=== PATIENT | male | born 1985 | race Caucasian/White ===

== ENCOUNTER 2017-10-05 18:45 | Emergency (ER) | payer SELFPAY ==
[2017-10-05 19:00] VITALS: BP 137/76; PULSE 105; RESP 18; TEMP 98.7
--- NOTE | 2017-10-05 19:29 | ED ---
ENT HPI - General Chief complaint: Dental/Oral Stated complaint: jaw swelling rt side Time Seen by Provider: 10/05/17 19:13 Source: patient, RN notes reviewed Mode of arrival: ambulatory Limitations: no limitations - History of Present Illness Initial comments: This is a 32-year-old male who presents to emergency department with chief complaint of right cheek swelling. Patient states that he's been experiencing jaw pain for the last 2 weeks. Today his right cheek became swollen. Patient states that he recently lost his insurance and has not seen a dentist recently. He states he has full range of motion of his jaw but that there is pain with eating. Patient states that he has always had dental issues and has had multiple dental abscesses in the past. Patient denies fevers, chills, shortness of breath, chest pain, abdominal pain, nausea or vomiting, diarrhea or constipation, numbness or tingling, headache or visual changes. - Related Data Previous Rx's Medication Instructions Recorded Amoxicillin/Potassium Clav 1 tab PO Q12HR #20 tab 10/05/17 [Augmentin 875-125 Tablet] Allergies Allergy/AdvReac Type Severity Reaction Status Date / Time No Known Allergies Allergy Verified 10/05/17 19:00 Review of Systems ROS Statement: Those systems with pertinent positive or pertinent negative responses have been documented in the HPI. ROS Other: All systems not noted in ROS Statement are negative. Past Medical History Past Medical History: No Reported History History of Any Multi-Drug Resistant Organisms: None Reported Past Surgical History: Orthopedic Surgery Additional Past Surgical History / Comment(s): hand Past Psychological History: No Psychological Hx Reported Smoking Status: Current every day smoker Past Alcohol Use History: None Reported Past Drug Use History: None Reported General Exam - General Exam Comments Initial Comments: General: Awake and alert, well-developed; in no apparent distress. HEENT: Head atraumatic, normocephalic. Pupils are equal, round and reactive to light. Extraocular movements intact. Oropharynx moist without erythema or exudate. Patient has very poor dentition with multiple caries and missing teeth. Right lower molars are missing. No masses or areas of fluctuance noted. There is tenderness on palpation of inner right cheek. There is visible swelling of the cheek. Neck: Supple. Normal ROM. Cardiovascular: Regular rate and rhythm. No murmurs, rubs or gallops. Chest symmetrical. Respiratory: Lungs clear to auscultation bilaterally. No wheezes, rales or rhonchi. Normal respiratory effort with no use of accessory muscles. Skin: [place], warm and dry without rashes or lesions. Neurological: Alert and oriented x3. CN II-XII grossly intact. Speech is fluent and answers are appropriate. No focal neuro deficits. Psychiatric: Normal mood and affect. No overt signs of depression or anxiety noted. Limitations: no limitations Course Vital Signs 10/05/17 18:56 Temperature 98.7 F Pulse Rate 105 H Respiratory 18 Rate Blood Pressure 137/76 O2 Sat by Pulse 98 Oximetry Medical Decision Making - Medical Decision Making This is a 32-year-old male who presents to the emergency department with chief complaint of right cheek swelling. Patient has poor dentition, multiple caries and missing teeth. There is swelling noted to the right cheek and tenderness with palpation. This is likely due to a periodontal infection. Patient will be discharged home with a prescription for Augmentin. He was recommended to follow up with a dentist. He is to return to the emergency department if symptoms do not improve, swelling worsens or he develops a fever. Patient is in agreement to the plan and voices understanding. All questions were answered. Disposition Clinical Impression: Dental infection Disposition: HOME SELF-CARE Condition: Good Instructions: Toothache (ED) Additional Instructions: Please take medications as prescribed. Please follow up with primary care provider within 1-2 days. Return to emergency department if symptoms should worsen or any concerns arise. Prescriptions: Amoxicillin/Potassium Clav [Augmentin 875-125 Tablet] 1 tab PO Q12HR #20 tab Referrals: None,Stated [Primary Care Provider] - 1-2 days
== END 2017-10-05 19:36 | disposition home or self-care (01) ==
LOC: EC 18:45
DX: K04.7 Periapical abscess without sinus (principal); K02.9 Dental caries, unspecified; F17.200 Nicotine dependence, unspecified, uncomplicated
CPT/HCPCS: 99283